=== PATIENT | male | born 1985 ===

== ENCOUNTER 2016-03-30 20:12 | Emergency (ER) | payer OTHER ==
[~2016-03-30] VITALS: Ht 170.2 cm; Wt 66.3 kg
[2016-03-30 20:12] VITALS: TEMP 37.4; Ht 170.2 cm; Wt 66.3 kg
--- NOTE | 2016-03-30 22:44 | DIAGNOSTIC IMAGING REPORT ---
HEAD CT NONCONTRAST CT DOSE: HISTORY: Right side facial injury during basketball game TECHNIQUE: Multiaxial CT images of the head were performed without the use of intravenous contrast. Automated exposure control was utilized for this study. Comparison: None. Findings: The mastoid air cells are clear. There is a right orbital floor fracture. The calvarium and skull base are intact. The ventricles and sulci are within normal limits. There is no mass, hematoma, midline shift, or acute infarct. Impression: No acute intracranial abnormality. Right orbital floor fracture. Electronically signed by: Feng Fleming M.D. 03/30/2016 10:43 PM Dictated Date/Time: 03/30/2016 10:40 PM
--- NOTE | 2016-03-30 22:51 | DIAGNOSTIC IMAGING REPORT ---
MAXILLOFACIAL CT CT DOSE: 843.80 mGy.cm HISTORY: Right side facial injury during basketball game TECHNIQUE: Multiaxial CT images of the maxillofacial region were performed and reformatted in the coronal plane without the use of contrast. COMPARISON: None. FINDINGS: There is a depressed fracture within the right orbital floor which extends to the junction of the medial orbital wall. The orbital floor fracture demonstrates up to 7 mm of depression medially. There is extraconal fat extending through the inferomedial defect. Mild thickening of the right inferior rectus muscle. The optic nerves and globes appear intact. No additional fractures identified within the maxillofacial region. No fluid levels within the paranasal sinuses. The mastoid air cells are clear. The retrobulbar fat is intact. IMPRESSION: A depressed right orbital floor fracture as described above. The right orbit extraconal fat extends through the inferomedial fracture defect and there is mild thickening of the right inferior rectus muscle. Clinical correlation recommended to assess for entrapment. Electronically signed by: Feng Fleming M.D. 03/30/2016 10:49 PM Dictated Date/Time: 03/30/2016 10:43 PM
[2016-03-31] MEDS ORDERED: AMOX875T PO (00:42)
[2016-03-31] MEDS ORDERED: OXYC1TAB3 PO (00:42)
[2016-03-31] MEDS ORDERED: AMOXICIL/CLAVU 875MG HOME PACK PO ONE (00:45)
[2016-03-31] MEDS ORDERED: OXYCODONE IR HOME PACK PO ONE (00:45)
[2016-03-31 01:03] VITALS: BP 143/83; PULSE 82; O2SAT 98
--- NOTE | 2016-04-03 18:14 | EMERGENCY ROOM VISIT NOTE ---
History First contact with patient: 21:30 Chief Complaint: HEAD INJURY (MINOR) Stated Complaint: HEAD INJURY History of Present Illness The patient is a 30 year old male who presents to the Emergency Room with complaints of right-sided facial injury that occurred approximately 30 minutes ago. The patient was playing basketball, when he a another player accidentally struck him with his shoulder. The patient had immediate pain and discomfort. When he blew his nose shortly afterwards he had an on sensation around his right eye, which concerned him. The patient states that when he looks downward he has difficulty focusing his vision. He does not have significant blood or bleeding. No dental injury or neck pain. The patient has not taken anything [id number] for his symptoms. He rates his discomfort a 5/10. Review of Systems More than 10 systems were reviewed and otherwise negative with the exception of history of present illness. Past Medical/Surgical History No chronic medical disease Family History No pertinent family history Social History Smoking Status: Never Smoker Occupation Status: [employer] student Current/Historical Medications Scheduled Amoxicillin & Pot Clavulanate (Augmentin 875-125 mg), 1 TAB PO BID Oxycodone Immediate Rel Tab (Roxicodone Ir), 1-2 TAB PO Q6 Allergies Coded Allergies: No Known Allergies (Unverified , 03/30/16) Physical Exam Vital Signs Date Time Temp Pulse Resp B/P Pulse Ox O2 Delivery O2 Flow Rate FiO2 03/31/16 01:03 82 16 143/83 98 03/30/16 23:47 85 18 135/94 99 Room Air 03/30/16 21:55 78 18 126/70 98 Room Air 03/30/16 20:12 37.4 99 20 141/77 98 Room Air Pain Rating (0-10): 2.0 Physical Exam VITALS: Vitals are noted on the nurse's note and reviewed by myself. Vital signs stable. GENERAL: Well-developed, well-nourished, male, who is in no acute distress and resting comfortably. Patient is cooperative with the examination. HEAD: Tenderness is appreciated over the right maxillary sinus region. No lindsey sign or raccoon eyes. EARS: External ear normal. External auditory canals clear, tympanic membranes pearly brooks without erythema or effusion bilaterally. No hemotympanum. EYES: Pupils equal round and reactive to light and accommodation. Conjunctivae without injection, sclerae without icterus. Extraocular movements intact. NOSE: Patent, turbinates without inflammation or discharge. No epistaxis MOUTH: Mucous membranes moist. Tonsils are not enlarged. Pharynx without erythema, blood, or exudate. Uvula midline. Airway patent. NECK: Supple without nuchal rigidity. No lymphadenopathy. No thyromegaly. Cervical spine is nontender. HEART: Regular rate and rhythm without murmurs gallops or rubs. LUNGS: Clear to auscultation bilaterally without wheezes, rales or rhonchi. No retractions or accessory muscle use. Medical Decision & Procedures ER Provider Diagnostic Interpretation: HEAD CT NONCONTRAST CT DOSE: HISTORY: Right side facial injury during basketball game TECHNIQUE: Multiaxial CT images of the head were performed without the use of intravenous contrast. Automated exposure control was utilized for this study. Comparison: None. Findings: The mastoid air cells are clear. There is a right orbital floor fracture. The calvarium and skull base are intact. The ventricles and sulci are within normal limits. There is no mass, hematoma, midline shift, or acute infarct. Impression: No acute intracranial abnormality. Right orbital floor fracture. MAXILLOFACIAL CT CT DOSE: 843.80 mGy.cm HISTORY: Right side facial injury during basketball game TECHNIQUE: Multiaxial CT images of the maxillofacial region were performed and reformatted in the coronal plane without the use of contrast. COMPARISON: None. FINDINGS: There is a depressed fracture within the right orbital floor which extends to the junction of the medial orbital wall. The orbital floor fracture demonstrates up to 7 mm of depression medially. There is extraconal fat extending through the inferomedial defect. Mild thickening of the right inferior rectus muscle. The optic nerves and globes appear intact. No additional fractures identified within the maxillofacial region. No fluid levels within the paranasal sinuses. The mastoid air cells are clear. The retrobulbar fat is intact. IMPRESSION: A depressed right orbital floor fracture as described above. The right orbit extraconal fat extends through the inferomedial fracture defect and there is mild thickening of the right inferior rectus muscle. Clinical correlation recommended to assess for entrapment. Medications Administered Medications (Trade) Dose Ordered Sig/Vincent Route Start Time Stop Time Status Last Admin Dose Admin Amoxicillin/ Clavulanate Potassium (Augmentin 875MG Home Pack) 1 homepack UD ONCE PO 03/31/16 00:45 03/31/16 00:46 DC 1/28/17 00:59 1 HOMEPACK Oxycodone HCl (Roxicodone Immediate Rel 5MG Home Pack) 1 homepack UD ONCE PO 03/31/16 00:45 03/31/16 00:46 DC 03/31/16 00:59 1 [facility] ED Course Physical exam and history were performed. Nursing notes and EMR were reviewed. Patient appears to have suffered injury to his right sided facial playing basketball just prior to arrival. He does have tenderness over the right maxillary sinus. Patient complains of double vision when he looks inferiorly with his gaze. On exam there is no obvious sign of entrapment. CT scan of the head and face were performed. The patient's imaging studies are as above, and do reveal a right orbit fracture. There is questionable entrapment on CT scan. They reevaluated the patient multiple times throughout his ER stay, and he does continue to have intact extraocular movements. We do not have maxillofacial telecommunications facility examiner tonight, and I discussed the case with the on-call ENT. Recommendation was for antibiotics and pain medication. He is to avoid blowing his nose. This seems reasonable, and the patient will need to follow with maxillofacial in the next 2 -3 days for recheck of his condition. The patient was invited back to the ER anytime with any new, worsening, or concerning symptoms. He was given additional instructions as below and voiced understanding. He rated his discomfort a 2/10 at the time of departure. The chart was completed utilizing [employer] Speech Voice Recognition Software. Grammatical errors, random word insertions, pronoun errors, and incomplete sentences are an occasional consequence of this system due to software limitations, ambient noise, and hardware issues. Any formal questions or concerns about the content, text, or information contained within the body of this dictation should be directly addressed to the provider for clarification. . Medical Decision Differential diagnosis includes, but is not limited to: Sprain, strain, fracture , dislocation, subluxation, contusion, facial fracture, entrapment, and others Impression Primary Impression: Right orbit fracture Departure Information Dispostion Home / Self-Care Condition GOOD Prescriptions Amoxicillin & Pot Clavulanate (Augmentin 875-125 mg) 1 Tab Tab 1 TAB PO BID for 7 Days, #14 TAB Prov: Richie Camacho PA-C 03/31/16 Oxycodone Immediate Rel Tab (ROXICODONE IR) 5 Mg Tab 1-2 TAB PO Q6, #24 TAB Prov: Richie Camacho, NICHOLAS 03/31/16 Referrals Eddie Stroud DMD, MD, FACS Forms HOME CARE DOCUMENTATION FORM, IMPORTANT VISIT INFORMATION Patient Instructions My [facility] Additional Instructions You were seen and evaluated today on an emergency basis only. This is not a substitute for, or an effort to provide, complete comprehensive medical care. It is not possible to recognize and treat all injuries or illnesses in a single emergency department visit. For this reason it is recommended that you followup with Oral maxillofacial surgery, Dr. Stroud's office, by telephone on Saturday to arrange an appropriate follow-up. Let them know you were seen in the emergency department to help make the appointment. For baseline pain relief you may alternate ibuprofen and acetaminophen every 4 hours for pain control. Take 600 mg ibuprofen (Advil) and then 4 hours later take 1000 mg acetaminophen (Tylenol). Do not take more than 3000 mg acetaminophen in a single day. Oxycodone (OxyIR) 5mg: Take ONE pill every SIX hours for breakthrough pain. Avoid alcohol, operating machinery or dangerous equipment, working on ladders or roofs, DRIVING, or situations where being under the influence may be dangerous. It is recommended to use an [id number] stool softener such as Colace, 100mg twice daily while taking this medication to avoid constipation. Amoxicillin Clavulanate (Augmentin) 875mg: Take one pill twice daily for 7 days to prevent infection. All antibiotics can cause diarrhea. If this occurs and you feel worse or it does not resolve in 1-2 days follow up with your doctor or return to the Emergency Department as this could be signs of serious underlying problems. Any medication can cause an allergic reaction, stop the pills immediately and return to the ER for rash, hives, breathing difficulties, or swelling. Do not blow your nose Avoid activities that may cause further injury to your face You are welcome to return to the emergency department anytime with new, worsening, or concerning symptoms.
== END 2016-03-31 01:04 | disposition home or self-care (01) ==
LOC: EDBD 20:12 → C.EDB 20:14
DX: S02.31XA Fracture of orbital floor, right side, initial encounter for closed fracture (principal); W50.0XXA Accidental hit or strike by another person, initial encounter; Y93.67 Activity, basketball